=== PATIENT | female | born 1955 | race Caucasian/White ===

== ENCOUNTER → 2016-02-12 | Outpatient (CLI) | payer OTHER ==
[~2016-02-12] MED LIST: ABILIFY 5 MG TAB5 MG; ALBUTEROL2.5 MG/0.5; ALBUTEROL2.5 MG/0.5 INH; ALDACTONE25 MG; ASPIR 8181 MG; ASPIR 8181 MG PO; BACTRIM DS TAB1 EACH PO; BRINTELLIX20 MG PO; CELEBREX 200 M200 M1 PO; CLARITIN10 M2; CLARITIN10 MG PO; COZAAR 50 MG TA50 M2; COZAAR 50 MG TA50 M2 PO; CYMBALTA30 MG; DIABETA 5MG TABL5 MG PO; DICLOFENAC SODI75 MG PO; EPIPEN 2-P0.3 MG/0.3; FETZIMA80 MG PO; FISH OIL 1,001000 M2 PO; FLEXERIL PO; GLUCOTROL5 MG; HUMALOG KW200 UNIT/1; HUMALOG KW200 UNIT/1 SQ; HYDROXYZINE HCL25 M1 PO; IBUPROFEN 800800 M1; IBUPROFEN 800800 M1 PO; INSULIN; JANUVIA100 MG; K-DUR10 MEQ PO; LANTUS SOL100 UNIT/1 SQ; LASIX 40 MG TAB40 M2; LASIX 40 MG TAB40 M2 PO; LEVALBUTER1.25 MG/0.; MACROBID 100 M100 M1 PO; NEURONTIN 300300 M1 PO; NEXIUM40 MG; NEXIUM40 MG PO; NIASPAN 500 MG500 M1; NORCO 5-325 TA1 EACH PO; POTASSIUM20; POTASSIUM20 PO; PRAZOSIN HCL2 MG; PRAZOSIN HCL5 MG; PRAZOSIN HCL5 MG PO; PREDNISONE 20 M20 MG PO; REMERON15 MG; ROPINIROLE HCL2 MG PO; SERTRALINE HCL50 MG PO; SINGULAIR 10 MG10 M1 PO; TOUJEO SOL300 UNIT/1 SUBQ; TRADJENTA5 MG PO; VENTOLIN HFA 1818 GM INH; VIIBRYD40 MG; VIVELLE-DOT1 EAC1; VIVELLE-DOT1 EAC1 TD; XANAX 0.25 MG0.25 MG; XANAX 0.25 MG0.25 MG PO; XARELTO15 MG PO; XARELTO20 MG PO; XOLAIR150 MG SUBQ; XYZAL5 MG; XYZAL5 MG PO; XYZBAC TABLET1 EACH PO; ZENZEDI10 MG; ZOFRAN4 MG PO; ZOLOFT50 MG PO
== END ==
LOC: RAD 11:49
DX: M47.814 Spondylosis without myelopathy or radiculopathy, thoracic region (principal); M17.0 Bilateral primary osteoarthritis of knee; R07.9 Chest pain, unspecified